=== PATIENT | female | born 1985 | race Native Hawaiian/Other Pacific Islander ===

== ENCOUNTER 2017-10-05 08:22 | Inpatient (IN) | payer MEDICAID ==
[2017-10-05] MEDS ORDERED: LACTATED RINGERS 2,000 ML ONE (08:28)
--- NOTE | 2017-10-05 08:53 | History and Physical Report ---
History of Present Illness Date of examination: 10/05/17 Date of admission: 10/05/17 08:24 Chief complaint: Bleeding History of present illness: Patient complains of bleeding. Her OB is Dr. Martin, she's a known previa and has had ~3 bleeding episodes in the . State this is the most bleeding she's had in the . Past History Past Medical History: no pertinent history Past Surgical History: cholecystectomy, other (knee) - Obstetrical History Expected Date of Delivery: 11/16/17 Actual Gestation: 34 Week(s) 0 Day(s) : 5 Medications and Allergies Allergies Allergy/AdvReac Type Severity Reaction Status Date / Time No Known Allergies Allergy Unverified 06/02/14 16:36 Home Medications Medication Instructions Recorded Confirmed Last Taken Type HYDROcodone/APAP 5-325 [[place] 1 each PO Q6HR PRN #14 tablet 06/02/14 Unknown Rx 5-325 mg TAB] Active Meds: Active Medications Acetaminophen (Tylenol) 650 mg PO Q4H PRN PRN Reason: Pain MILD(1-3)/Fever >100.5/QUIROZ Al Hydrox/Mg Hydrox/Simethicone (Alum-Mag Hydrox-Simeth 831-171-75ex/5ml) 30 ml PO Q6H PRN PRN Reason: Indigestion Betamethasone Acet/Betameth SodPhos (Celestone Soluspan) 12 mg IM Q24HR [facility] Stop: 10/06/17 10:01 Docusate Sodium (Colace) 100 mg PO Q12H PRN PRN Reason: Constipation Lactated Ringer's (Lactated Ringers) 1,000 mls @ 125 mls/hr IV DIRECT JUSTIN Multivitamins/Iron/Calcium ( Vitamin) 1 each PO QDAY [facility] Ondansetron HCl (Zofran) 4 mg IV Q6H PRN PRN Reason: Nausea And Vomiting Simethicone (Mylicon) 80 mg PO Q6H PRN PRN Reason: Gas pain Review of Systems All systems: negative Genitourinary: vaginal bleeding - Physical Exam Breasts: Positive: deferred Cardiovascular: Regular rate Lungs: Positive: Normal air movement Abdomen: Positive: normal appearance (obese) Genitourinary (Female): Positive: normal external genitalia, normal perenium Vulva: both: normal (blood on perineum, thighs and on pad) Extremities: Positive: normal - Obstetrical FHR: category 1 Results All other labs normal. Ultrasound: pending Assessment and Plan - Patient Problems (1) 34 weeks gestation of Current Visit: Yes Status: Acute (2) Placenta previa Current Visit: Yes Status: Acute (3) Vaginal bleeding during , antepartum Current Visit: Yes Status: Acute Plan to address problem: Admit Steroids Will attempt to obtain medical records She was informed she will require C/S if bleeding recurs, also she may require hysterectomy if bleeding in unable to be controlled after c/s She's aware that NICU is on diversion and she has requested to be transferred to [facility], she was informed we will do everything to comply with her request once she is stable however now she needs to be observed for further bleeding. She voiced understanding. She was brought in via private vehicle by her brother-in- law.
[2017-10-05 08:59] LABS: Basophils % (Auto) 0.5 % (0.0-1.8); Eosinophils # (Auto) 0.2 K/mm3 (0.0-0.4); Eosinophils % (Auto) 2.6 % (0.0-4.3); Hematocrit 30.7 % (30.3-42.9); Hemoglobin 10.1 gm/dl (10.1-14.3); Lymphocytes # (Auto) 1.9 K/mm3 (1.2-5.4); Lymphocytes % (Auto) 22.3 % (13.4-35.0); Mean Corpuscular HGB Conc 33 % (30-34); Mean Corpuscular Hemoglobin 27 pg (28-32); Mean Corpuscular Volume 83 fl (79-97); Monocytes # (Auto) 0.3 K/mm3 (0.0-0.8); Monocytes % (Auto) 3.9 % (0.0-7.3); Platelet Count 288 K/mm3 (140-440); Red Blood Count 3.69 M/mm3 (3.65-5.03); Red Cell Distribution Width 16.4 % (13.2-15.2)
[2017-10-05] MEDS ORDERED: LACTATED RINGERS 1,000 ML IV SCH (09:00)
[2017-10-05] MEDS ORDERED: COLACE PO PRN (09:00)
[2017-10-05] MEDS ORDERED: ZOFRAN IV PRN (09:00)
[2017-10-05] MEDS ORDERED: ALUM-MAG HYDROX-SIMETH 200-200-20MG/5ML PO PRN (09:00)
[2017-10-05] MEDS ORDERED: MYLICON PO PRN (09:00)
[2017-10-05] MEDS ORDERED: TYLENOL PO PRN (09:00)
[2017-10-05 09:30] LABS: Rubella IgG Antibody Immune (Immune)
[2017-10-05] MEDS ORDERED: PRENATAL VITAMIN PO SCH (10:00)
[2017-10-05] MEDS ORDERED: CELESTONE SOLUSPAN IM SCH (10:00)
[2017-10-05 10:32] LABS: Hepatitis C Virus Antibody Non-Reactive (NonReactive)
[2017-10-05 10:36] LABS: Bilirubin,Urine NEG (Negative); Blood,Urine MOD (Negative); Color,Urine Yellow (Yellow); Mucus,Urine FEW /HPF; Protein,Urine <15 mg/dL mg/dL (Negative); Urobilinogen,Urine < 2.0 mg/dL (<2.0)
[2017-10-05 11:25] LABS: Amphetamine Screen,Urine PRESUMPTIVE NEGATIVE; Benzodiazepines Screen,Urine PRESUMPTIVE NEGATIVE; Cannabinoid Screen,Urine PRESUMPTIVE NEGATIVE; Cocaine Screen,Urine PRESUMPTIVE NEGATIVE; Methadone Screen,Urine PRESUMPTIVE NEGATIVE; Opiate Screen,Urine PRESUMPTIVE NEGATIVE
--- NOTE | 2017-10-05 13:59 | Event Note ---
Date: 10/05/17 Patient resting, no complaints. No new bleeding noted. T CAT 1.
--- NOTE | 2017-10-05 16:49 | Ultrasound Report ---
FINAL REPORT EXAM: US OB FOLLOW UP HISTORY: Bleeding Previa TECHNIQUE: Transabdominal sonography of the pelvis. PRIORS: None. FINDINGS: There is a single, live intrauterine in cephalic presentation. heart motion is detected and heart rate is 146 beats per minute. Complete placenta previa noted. Cervical length 4.1 cm. Biometric data obtained and corresponds to an estimated gestational age of 35 weeks 3 days and an ultrasound estimated date of delivery of 06 Nov 2017 (it should be noted that an examination performed earlier in may yield more accurate dating). survey not performed. Amniotic fluid index is 10.9 cm. BPD: 8.56 cm HC: 32.91 cm AC: 31.37 cm FL: 6.71 cm Remainder of the uterus and adnexa grossly unremarkable. IMPRESSION: 1. Single, live intrauterine . 2. Complete placenta previa.
--- NOTE | 2017-10-05 17:00 | Event Note ---
Date: 10/05/17 no new bleeding, patient stable at this time. Dr. Bautista with [facility] at [facility] has agreed to accept patient as transfer d/t NICU diversion. Patient has agreed to transfer, verbalized understanding that once she leaves the hospital there could be a deterioration in her condition. Transfer consent signed. MARICARMEN Peace aware and helping with arrangements. Dr. Bautista Called to verify receiving hospital.
[2017-10-05 17:47] VITALS: BP 128/77
== END 2017-10-05 19:45 | disposition short-term general hospital (02) | DRG 782 ==
LOC: TRG 08:22 → APU 08:24 → LD 11:13
PROVIDERS: ADMIT Obstetrics & Gynecology; ATTEND Obstetrics & Gynecology
DX: O44.03 Complete placenta previa NOS or without hemorrhage, third trimester (principal); Z3A.34 34 weeks gestation of pregnancy
CPT/HCPCS: 36415; 76816; 80307; 81001; 85025; 85660; 86592; 86706; 86762; 86803; 86850; 86900; 86901; 87806; J0702; J7120